=== PATIENT | female | born 1965 | race Caucasian/White ===

== ENCOUNTER 2017-12-15 16:43 | Emergency (ER) | payer MEDICAID ==
[~2017-12-15] VITALS: Ht 157.5 cm; Wt 63.0 kg
[2017-12-15 16:51] VITALS: Ht 157.5 cm; Wt 63.0 kg
[2017-12-15 18:23] VITALS: BP 136/80
== END 2017-12-15 18:23 | disposition home or self-care (01) ==
LOC: ED 16:43
DX: N39.0 Urinary tract infection, site not specified (principal)